=== PATIENT | female | born 1965 | race Caucasian/White ===

== ENCOUNTER 2022-08-13 14:50 | Outpatient (CLI) | payer OTHER, SELFPAY ==
--- NOTE | 2022-08-20 16:22 | WPDHOLTEREM ---
Holter/Event Monitor Holter/Event Monitor Date of procedure: 08/13/22 Holter/Event Procedure: 48 Hr Holter Monitor Indications: Palpitations Conclusion: 1. 48 hour holter monitor on 08/13/22. 2. Underlying rhythm is sinus rhythm. HR range 47-126 bpm; average HR 75 bpm. 3. There at 46 premature supraventricular complexws and 1 supraventricular triplet. No supraventricular tachycardia. 4. No premature ventricular complexes. No ventricular tachycardia. 5. No sinoatrial or atrioventricular blocks. No significant pauses greater than 2 seconds. 6. No symptoms available for correlation.
== END 2022-08-13 14:51 | disposition home or self-care (01) ==
LOC: ANHCARD 14:51
PROVIDERS: Visit Provider Physician Assistant Medical
DX: Z00.00 Encounter for general adult medical examination without abnormal findings (principal); R00.2 Palpitations; R63.5 Abnormal weight gain
CPT/HCPCS: 93225; 93226

== ENCOUNTER 2024-03-27 08:07 | Outpatient (CLI) | payer OTHER, SELFPAY ==
--- NOTE | ~2024-03-27 | US_ITS ---
EXAMINATION: US renal BI DATE: 03/27/2024 08:40 INDICATION: Cyst of kidney, acquired. TECHNIQUE: Multiple ultrasound grayscale images of the kidneys were obtained. COMPARISON: None. FINDINGS: The right kidney measures 12.3 x 5.6 x 6.1 cm. The left kidney measures 10.8 x 4.8 x 6.1 cm. The kidn eys demonstrate normal parenchymal echogenicity. There is a 4.7 cm cystic mass with septations in rig ht kidney. There is a 3.5 cm cystic mass with low-level echoes in right kidney. There is no hydroneph rosis. The bladder is normal. IMPRESSION: 1. Two cystic masses in right kidney with the larger measuring 4.7 cm, which may be benign or less l ikely malignant. Abdomen CT or MRI without and with contrast is recommended. Reviewed, dictated and finalized at location A. IMPRESSION: 1. Two cystic masses in right kidney with the larger measuring 4.7 cm, which m ay be benign or less likely malignant. Abdomen CT or MRI without and with contr ast is recommended.
--- NOTE | ~2024-03-27 | US_ITS ---
US abdomen limited INDICATION: Fatty infiltration of the liver. PROCEDURE: Realtime right upper abdominal ultrasound. COMPARISON: No prior studies for comparison. FINDINGS: The pancreas is normal without focal mass or pancreatic ductal dilation. Liver echotexture is increased, consistent with fatty infiltration of the liver. There is normal directional flow in the portal vein. The gallbladder is normal without stones, gallbladder wall thickening or pericholecystic fluid. Comm on bile duct measures 3 mm. No sonographic Sexton's sign. IMPRESSION: 1: Fatty infiltration of the liver. Reviewed, dictated and finalized at location B.
--- NOTE | ~2024-03-27 | CT_ITS ---
EXAMINATION: CTA chest PE protocol DATE: 03/27/2024 09:01 INDICATION: Other nonspecific abnormal finding of lung field. Lung nodule. TECHNIQUE: Computed tomography angiography (CTA) of the chest was performed with 100 mL Omnipaque-350 intravenous contrast timed to evaluate the pulmonary arteries. Coronal maximum intensity projection 3D-reconstructions were created by the technologist. Automated exposure control and iterative reconst ruction technique were employed. The dose-length product was 517.17 mGy-cm. COMPARISON: Chest 2 views 08/07/2022 FINDINGS: The lungs demonstrate minimal atelectasis. In the left lower lobe, there is a 19 mm lobulat ed nodule. There is a 4 mm nodule in lingula, likely benign. No pleural effusion. The heart size is n ormal. No pericardial effusion. There is a small sliding hiatal hernia. There is no pulmonary embolus . There is diffuse hepatic steatosis. There is mild thoracic spondylosis. IMPRESSION: 1. 19 mm nodule in left lung lower lobe, which may be granulomatous disease or primary bronchogenic c arcinoma. Either PET/CT or CT-guided biopsy is recommended. Reviewed, dictated and finalized at location A. IMPRESSION: 1. 19 mm nodule in left lung lower lobe, which may be granulomatous disease or primary bronchogenic carcinoma. Either PET/CT or CT-guided biopsy is recommende ricco
== END 2024-03-27 08:08 | disposition home or self-care (01) ==
LOC: MICIMG 08:08
PROVIDERS: PCP Physician Assistant Medical; Visit Provider Physician Assistant Medical
DX: N28.1 Cyst of kidney, acquired (principal); K76.0 Fatty (change of) liver, not elsewhere classified; R91.8 Other nonspecific abnormal finding of lung field
CPT/HCPCS: 71275; 76705; 76775; Q9967